=== PATIENT | female | born 1935 | race Caucasian/White ===

== ENCOUNTER 2017-11-29 07:45 | Outpatient (RCR) | payer MEDICARE ==
[2017-11-29] VITALS (8 sets, daily range): BP systolic 106–126; BP diastolic 34–57
[~2017-11-29] VITALS: Ht 162.6 cm; Wt 49.0 kg
[2017-11-29] MEDS ORDERED: NS IV 500 ML 500 ML ONE (07:59)
[2017-11-29] MEDS ORDERED: NS IV 500 ML 500 ML IV ONE (08:00)
[2017-11-29 13:24] LABS: HEMOGLOBIN 9.8 G/DL (11.5-16.0); MEAN PLATELET VOLUME 10.2 FL (7.4-10.4); RED BLOOD COUNT 3.13 10^6/uL (4.35-5.85); RED CELL DISTRIBUTION WIDTH 15.3 % (10.0-14.5); WHITE BLOOD COUNT 5.6 10^3/uL (4.3-11.0)
== END 2018-02-26 | disposition home or self-care (01) ==
LOC: LAB 07:45
PROVIDERS: ATTEND Nurse Practitioner
DX: D64.9 Anemia, unspecified (principal)
CPT/HCPCS: 36415; 36430; 85027; 86850; 86900; 86901; 86920

== ENCOUNTER 2017-12-04 18:10 | Outpatient (RCR) | payer MEDICARE | END 2018-02-26 | disposition home or self-care (01) | PROVIDERS: ATTEND Nurse Practitioner | DX: D64.9 Anemia, unspecified (principal) | CPT/HCPCS: 82274 ==

== ENCOUNTER → 2018-08-24 | Outpatient (CLI) | payer MEDICARE, MEDICAID ==
--- NOTE | 2018-08-24 12:57 | Diagnostic Imaging Report ---
EXAMINATION: Modified barium swallow. INDICATION: Difficulty swallowing. FINDINGS: This exam was performed in the presence of a speech pathologist, Jessica. There are no prior studies available for comparison. The patient was able to swallow thin barium without difficulty. She was also able to swallow the puree and mechanical soft consistency barium-impregnated substances without difficulty. IMPRESSION: There is no evidence for aspiration or penetration. Dictated by: Dictated on workstation # [id number]
== END ==
LOC: RAD 10:00
PROVIDERS: ATTEND Family Medicine
DX: R13.11 Dysphagia, oral phase (principal)
CPT/HCPCS: 74230